=== PATIENT | male | born 1985 | race Caucasian/White ===

== ENCOUNTER → 2020-07-19 | Outpatient (CLI) | payer OTHER ==
--- NOTE | 2020-07-19 11:36 | Diagnostic Imaging Report ---
EXAMINATION: AP supine and upright views of the abdomen INDICATION: Left upper quadrant abdominal pain. COMPARISON: None available. FINDINGS: There is a nonobstructive bowel gas pattern. Scattered gas and stool is noted in the colon. No unusual stool burden. No evidence of pneumoperitoneum. A rounded calcification measuring up to 4 mm overlies the right renal collecting system and a 3 mm rounded calcific density overlies the left renal collecting system. There is also suggestion of a 5 mm amorphous calcification in the region of the liver. No organomegaly is suspected. The visualized lung bases are clear. No acute osseous abnormality is identified. IMPRESSION: Nonobstructive bowel gas pattern. Suggestion of bilateral renal calculi, presumably in the collecting systems. This can be further evaluated with renal ultrasound or CT scan, as indicated. Amorphous calcification overlying the liver is indeterminate. This may represent fecal material in the bowel or possibly a calcified granuloma in the liver. Dictated by: Dictated on workstation # [id number]
== END ==
LOC: RAD 10:15
PROVIDERS: ATTEND Nurse Practitioner Family
DX: R10.12 Left upper quadrant pain (principal)
CPT/HCPCS: 74019

== ENCOUNTER → 2020-07-26 | Outpatient (CLI) | payer OTHER ==
--- NOTE | 2020-07-26 09:59 | Diagnostic Imaging Report ---
PROCEDURE: US Hepatic (Liver). TECHNIQUE: Multiple real-time grayscale images were obtained over the right upper quadrant in various projections. INDICATION: Elevated liver enzymes COMPARISON: None FINDINGS: The liver is borderline large in size measuring 18.4 cm. The liver is echogenic. No biliary dilatation is seen. No focal hepatic lesions are identified. The main portal vein is hepatopetal. The gallbladder demonstrates tiny nonmobile echogenic foci along the wall, may represent tiny polyps or small adherent stones. The wall is not thickened. The common bile duct is upper normal in diameter measuring 6 mm. Sonographic Ramirez sign is negative. The pancreas, IVC and aorta are not seen due to bowel gas. The right kidney measures 11.1 cm in length. There is no hydronephrosis. No free fluid is seen. IMPRESSION: 1. Mild hepatomegaly with hepatic steatosis. 2. Tiny echogenic foci in the gallbladder wall may represent very small polyps or adherent stones. There is no evidence of cholecystitis. Dictated by: Dictated on workstation # [id number]
== END ==
LOC: RAD 07:00
PROVIDERS: ATTEND Family Medicine
DX: R94.5 Abnormal results of liver function studies (principal); K76.0 Fatty (change of) liver, not elsewhere classified; R16.0 Hepatomegaly, not elsewhere classified
CPT/HCPCS: 76705